=== PATIENT | female | born 1995 | race Two or more races ===

== ENCOUNTER 2021-07-28 00:02 | Emergency (ER) | payer OTHER ==
[~2021-07-28] VITALS: Ht 170.2 cm; Wt 61.2 kg
--- NOTE | 2021-07-28 03:11 | NUR ---
F/U WITH LAB, PER LAB, JUST NEED TO VERIFY RESULTS
--- NOTE | 2021-07-28 03:22 | NUR ---
Patient discharged to home in stable condition. Written and verbal after care instructions given. Patient verbalizes understanding of instruction.
[2021-07-28 03:23] VITALS: BP 122/77
== END 2021-07-28 03:28 | disposition home or self-care (01) ==
LOC: ER 00:11
DX: R78.0 Finding of alcohol in blood (principal); T51.91XA Toxic effect of unspecified alcohol, accidental (unintentional), initial encounter; Z60.2 Problems related to living alone; Y92.89 Other specified places as the place of occurrence of the external cause; Y90.6 Blood alcohol level of 120-199 mg/100 ml
CPT/HCPCS: 36415; G0480